=== PATIENT | female | born 1965 | race Caucasian/White ===

== ENCOUNTER 2024-06-26 03:24 | Outpatient (RCR) | payer OTHER, SELFPAY ==
[2024-06-05 09:10] LABS: Abs Immature Grans 0.04 10^3/uL (0.0-0.06); Absolute Basophil Count 0.07 10^3/uL (0.0-0.2); Absolute Eosinophil Count 0.41 10^3/uL (0.0-0.7); Absolute Lymphocyte Count 1.81 10^3/uL (1.2-3.4); Absolute Monocyte Count 0.69 10^3/uL (0.1-0.8); Absolute Neutrophil Count 7.31 10^3/uL (1.2-6.7); Basophils % 0.7 %; HCT 43.6 % (36.0-46.0); HGB 14.4 g/dL (11.2-15.7); Immature Grans % 0.4 %; Lymphocytes % 17.5 %; MCH 29.3 pg (27.0-33.0); MCV 89 fL (80-95); Monocytes % 6.7 %; Neutrophils % 70.7 %; Platelet Count 283 10^3/uL (130-400); RBC 4.91 10^6/uL (3.93-5.22); RDW 12.7 % (11.7-14.6); RDW-SD 41.4 fL; WBC 10.33 10^3/uL (4.4-10.8)
[2024-06-05 09:19] LABS: ALT 35 U/L (14-59); AST 18 U/L (15-37); Albumin 3.3 g/dL (3.4-5.0); Alkaline Phosphatase 65 U/L (46-116); Anion Gap 4.2 mmol/L (3-11); BUN 12 mg/dL (7-18); Bilirubin, Total 0.64 mg/dL (0.2-1.0); CO2 34.8 mmol/L (21.0-32.0); CREATININE 0.8 mg/dL (0.55-1.02); Calcium 9.3 mg/dL (8.5-10.1); Chloride 102 mmol/L (98-107); Estimated GFR 84.82 (mL/min/1.73m2); Glucose 190 mg/dL (74-106); Sodium 141 mmol/L (136-145); Total Protein 6.8 g/dL (6.4-8.2)
[2024-06-05] MEDS: Normal Saline Flush 10 ML SYR IVP (09:33)
[2024-06-26] MEDS: Normal Saline Flush 10 ML SYR IVP (08:40)
[2024-06-26 08:54] LABS: Abs Immature Grans 0.05 10^3/uL (0.0-0.06); Absolute Basophil Count 0.08 10^3/uL (0.0-0.2); Absolute Eosinophil Count 0.04 10^3/uL (0.0-0.7); Absolute Lymphocyte Count 1.63 10^3/uL (1.2-3.4); Absolute Monocyte Count 0.93 10^3/uL (0.1-0.8); Absolute Neutrophil Count 6.88 10^3/uL (1.2-6.7); Basophils % 0.8 %; Eosinophils % 0.4 %; HCT 39.3 % (36.0-46.0); HGB 13.2 g/dL (11.2-15.7); Immature Grans % 0.5 %; MCH 29.1 pg (27.0-33.0); MCHC 33.6 % (32.0-36.0); MCV 87 fL (80-95); MPV 10.1 fL (8.0-11.0); Monocytes % 9.7 %; Neutrophils % 71.6 %; Platelet Count 164 10^3/uL (130-400); RBC 4.54 10^6/uL (3.93-5.22); RDW 12.5 % (11.7-14.6); RDW-SD 39.4 fL; WBC 9.61 10^3/uL (4.4-10.8)
[2024-06-26 09:15] LABS: ALT 72 U/L (14-59); AST 35 U/L (15-37); Albumin 3.3 g/dL (3.4-5.0); Alkaline Phosphatase 97 U/L (46-116); Anion Gap 3.2 mmol/L (3-11); BUN 13 mg/dL (7-18); Bilirubin, Total 0.65 mg/dL (0.2-1.0); CO2 34.8 mmol/L (21.0-32.0); CREATININE 0.8 mg/dL (0.55-1.02); Calcium 9.4 mg/dL (8.5-10.1); Chloride 102 mmol/L (98-107); Estimated GFR 84.82 (mL/min/1.73m2); Glucose 214 mg/dL (74-106); Sodium 140 mmol/L (136-145); Total Protein 6.8 g/dL (6.4-8.2)
== END 2024-06-27 23:59 | disposition home or self-care (01) ==
LOC: INF 03:24
PROVIDERS: PCP Internal Medicine; Visit Provider Nurse Practitioner Family
DX: C50.512 Malignant neoplasm of lower-outer quadrant of left female breast (principal)
CPT/HCPCS: 36591; 80053; 85025

== ENCOUNTER 2024-07-17 01:09 | Outpatient (RCR) | payer OTHER, SELFPAY ==
[2024-07-17] MEDS: Normal Saline Flush 10 ML SYR IVP (10:30)
[2024-07-17 11:00] LABS: Abs Immature Grans 0.02 10^3/uL (0.0-0.06); Absolute Basophil Count 0.03 10^3/uL (0.0-0.2); Absolute Monocyte Count 0.52 10^3/uL (0.1-0.8); Absolute Neutrophil Count 6.16 10^3/uL (1.2-6.7); Basophils % 0.4 %; HCT 33.8 % (36.0-46.0); HGB 11.2 g/dL (11.2-15.7); Immature Grans % 0.2 %; Lymphocytes % 17.2 %; MCH 29.6 pg (27.0-33.0); MCHC 33.1 % (32.0-36.0); MCV 89 fL (80-95); MPV 10.7 fL (8.0-11.0); Monocytes % 6.4 %; Neutrophils % 75.8 %; Platelet Count 234 10^3/uL (130-400); RBC 3.78 10^6/uL (3.93-5.22); RDW 15.5 % (11.7-14.6); WBC 8.13 10^3/uL (4.4-10.8)
[2024-07-17 11:17] LABS: ALT 39 U/L (14-59); AST 22 U/L (15-37); Albumin 3.1 g/dL (3.4-5.0); Alkaline Phosphatase 86 U/L (46-116); BUN 12 mg/dL (7-18); Bilirubin, Total 0.56 mg/dL (0.2-1.0); Chloride 102 mmol/L (98-107); Glucose 241 mg/dL (74-106); Potassium 3.5 mmol/L (3.5-5.1); Sodium 140 mmol/L (136-145); Total Protein 6.4 g/dL (6.4-8.2)
== END 2024-07-25 23:59 | disposition home or self-care (01) ==
LOC: INF 01:09
PROVIDERS: PCP Internal Medicine; Visit Provider Nurse Practitioner Family
DX: C50.512 Malignant neoplasm of lower-outer quadrant of left female breast (principal); Z17.0 Estrogen receptor positive status [ER+]
CPT/HCPCS: 36591; 80053; 85025

== ENCOUNTER 2024-08-14 11:00 | Outpatient (RCR) | payer OTHER, SELFPAY ==
[2024-08-07] MEDS: Normal Saline Flush 10 ML SYR IVP (10:29)
[2024-08-07 10:56] LABS: Abs Immature Grans 0.03 10^3/uL (0.0-0.06); Absolute Basophil Count 0.03 10^3/uL (0.0-0.2); Absolute Lymphocyte Count 1.68 10^3/uL (1.2-3.4); Absolute Monocyte Count 0.67 10^3/uL (0.1-0.8); Absolute Neutrophil Count 5.54 10^3/uL (1.2-6.7); Basophils % 0.4 %; HCT 26.4 % (36.0-46.0); HGB 8.7 g/dL (11.2-15.7); Immature Grans % 0.4 %; Lymphocytes % 21.1 %; MCH 30.2 pg (27.0-33.0); MCV 92 fL (80-95); MPV 11.5 fL (8.0-11.0); Monocytes % 8.4 %; Neutrophils % 69.7 %; RBC 2.88 10^6/uL (3.93-5.22); RDW 16.8 % (11.7-14.6); RDW-SD 51.5 fL; WBC 7.95 10^3/uL (4.4-10.8)
[2024-08-07 11:14] LABS: ALT 39 U/L (14-59); AST 20 U/L (15-37); Alkaline Phosphatase 75 U/L (46-116); Anion Gap 10.1 mmol/L (3-11); BUN 21 mg/dL (7-18); Bilirubin, Total 0.6 mg/dL (0.2-1.0); CO2 26.9 mmol/L (21.0-32.0); Calcium 9.3 mg/dL (8.5-10.1); Chloride 103 mmol/L (98-107); Glucose 240 mg/dL (74-106); Potassium 3.9 mmol/L (3.5-5.1); Sodium 140 mmol/L (136-145)
[2024-08-07 11:19] LABS: Platelet Count 38 10^3/uL (130-400)
[2024-08-14] MEDS: Normal Saline Flush 10 ML SYR IVP (11:07)
[2024-08-14 11:16] LABS: Abs Immature Grans 0.02 10^3/uL (0.0-0.06); Absolute Basophil Count 0.02 10^3/uL (0.0-0.2); Absolute Eosinophil Count 0.11 10^3/uL (0.0-0.7); Absolute Lymphocyte Count 1.12 10^3/uL (1.2-3.4); Absolute Monocyte Count 0.49 10^3/uL (0.1-0.8); Absolute Neutrophil Count 5.03 10^3/uL (1.2-6.7); Basophils % 0.3 %; Eosinophils % 1.6 %; HGB 8.5 g/dL (11.2-15.7); Immature Grans % 0.3 %; Lymphocytes % 16.5 %; MCH 31.6 pg (27.0-33.0); MCHC 32.7 % (32.0-36.0); MCV 97 fL (80-95); MPV 10.9 fL (8.0-11.0); Monocytes % 7.2 %; Neutrophils % 74.1 %; Platelet Count 108 10^3/uL (130-400); RBC 2.69 10^6/uL (3.93-5.22); RDW-SD 70.3 fL; WBC 6.79 10^3/uL (4.4-10.8)
[2024-08-14 11:37] LABS: ALT 41 U/L (14-59); AST 26 U/L (15-37); Alkaline Phosphatase 77 U/L (46-116); Anion Gap 5.1 mmol/L (3-11); BUN 16 mg/dL (7-18); Bilirubin, Total 0.9 mg/dL (0.2-1.0); CO2 28.9 mmol/L (21.0-32.0); Calcium 8.7 mg/dL (8.5-10.1); Chloride 105 mmol/L (98-107); Glucose 271 mg/dL (74-106); Potassium 4.5 mmol/L (3.5-5.1); Sodium 139 mmol/L (136-145); Total Protein 6.1 g/dL (6.4-8.2)
[2024-08-14 11:42] LABS: Diff Comment Diff Reviewed; Hypochromasia 2+
[2024-08-14 11:43] LABS: Anisocytosis 2+; Polychromasia Present
== END 2024-08-25 23:59 | disposition home or self-care (01) ==
LOC: INF 11:00
PROVIDERS: PCP Internal Medicine; Visit Provider Nurse Practitioner Family
DX: C50.512 Malignant neoplasm of lower-outer quadrant of left female breast (principal); Z17.0 Estrogen receptor positive status [ER+]
CPT/HCPCS: 36591; 80053; 85025

== ENCOUNTER 2024-09-12 08:15 | Outpatient (RCR) | payer OTHER, SELFPAY ==
[2024-09-05 10:40] LABS: Abs Immature Grans 0.02 10^3/uL (0.0-0.06); Absolute Basophil Count 0.02 10^3/uL (0.0-0.2); Absolute Lymphocyte Count 1.05 10^3/uL (1.2-3.4); Absolute Neutrophil Count 3.65 10^3/uL (1.2-6.7); Basophils % 0.4 %; HCT 22.7 % (36.0-46.0); HGB 7.5 g/dL (11.2-15.7); Immature Grans % 0.4 %; Lymphocytes % 20.4 %; MCH 34.6 pg (27.0-33.0); MCV 105 fL (80-95); MPV 11.2 fL (8.0-11.0); Monocytes % 7.8 %; Platelet Count 101 10^3/uL (130-400); RBC 2.17 10^6/uL (3.93-5.22); RDW 22.6 % (11.7-14.6); WBC 5.14 10^3/uL (4.4-10.8)
[2024-09-05 10:53] LABS: ALT 30 U/L (14-59); AST 20 U/L (15-37); Alkaline Phosphatase 66 U/L (46-116); Anisocytosis 2+; BUN 18 mg/dL (7-18); Bilirubin, Total 0.8 mg/dL (0.2-1.0); CREATININE 1.1 mg/dL (0.55-1.02); Calcium 8.7 mg/dL (8.5-10.1); Chloride 105 mmol/L (98-107); Diff Comment RBC Morph Reviewed; Estimated GFR 57.88 (mL/min/1.73m2); Glucose 234 mg/dL (74-106); Polychromasia Present; Potassium 4.2 mmol/L (3.5-5.1); Sodium 142 mmol/L (136-145); Total Protein 5.8 g/dL (6.4-8.2)
[2024-09-05] MEDS: Normal Saline Flush 10 ML SYR IVP (10:55)
[2024-09-12 09:01] LABS: Abs Immature Grans 0.01 10^3/uL (0.0-0.06); Absolute Basophil Count 0.02 10^3/uL (0.0-0.2); Absolute Eosinophil Count 0.11 10^3/uL (0.0-0.7); Absolute Lymphocyte Count 1.13 10^3/uL (1.2-3.4); Absolute Monocyte Count 0.41 10^3/uL (0.1-0.8); Absolute Neutrophil Count 4.85 10^3/uL (1.2-6.7); Basophils % 0.3 %; Eosinophils % 1.7 %; HCT 28.6 % (36.0-46.0); HGB 9.3 g/dL (11.2-15.7); Immature Grans % 0.2 %; Lymphocytes % 17.3 %; MCH 33.8 pg (27.0-33.0); MCHC 32.5 % (32.0-36.0); MCV 104 fL (80-95); MPV 10.8 fL (8.0-11.0); Monocytes % 6.3 %; Neutrophils % 74.2 %; Platelet Count 225 10^3/uL (130-400); RBC 2.75 10^6/uL (3.93-5.22); RDW 21.7 % (11.7-14.6); RDW-SD 81.6 fL; WBC 6.53 10^3/uL (4.4-10.8)
[2024-09-12 09:17] LABS: ALT 40 U/L (14-59); AST 25 U/L (15-37); Albumin 3.2 g/dL (3.4-5.0); Alkaline Phosphatase 81 U/L (46-116); Anion Gap 9.1 mmol/L (3-11); BUN 20 mg/dL (7-18); Bilirubin, Total 0.7 mg/dL (0.2-1.0); CO2 27.9 mmol/L (21.0-32.0); CREATININE 1.2 mg/dL (0.55-1.02); Calcium 9.2 mg/dL (8.5-10.1); Chloride 102 mmol/L (98-107); Estimated GFR 52.14 (mL/min/1.73m2); Glucose 247 mg/dL (74-106); Potassium 3.9 mmol/L (3.5-5.1); Sodium 139 mmol/L (136-145); Total Protein 6.5 g/dL (6.4-8.2)
[2024-09-12] MEDS: Normal Saline Flush 10 ML SYR IVP (09:18)
== END 2024-09-24 23:59 | disposition home or self-care (01) ==
LOC: INF 08:15
PROVIDERS: PCP Internal Medicine; Visit Provider Nurse Practitioner Family
DX: C50.512 Malignant neoplasm of lower-outer quadrant of left female breast (principal); Z17.0 Estrogen receptor positive status [ER+]; Z45.2 Encounter for adjustment and management of vascular access device
CPT/HCPCS: 36591; 80053; 85025

== ENCOUNTER 2024-10-16 02:34 | Outpatient (CLI) | payer OTHER, SELFPAY ==
--- NOTE | 2024-10-16 | DI.US_ITS ---
APPROVED REPORT EXAM: Comprehensive 2D, Doppler, and color-flow Echocardiogram Patient Location: Out-Patient Financial Systems Administrator: Marleni Dias RDCS (AE) Indications: Encounter for monitoring cardiotoxic drug therapy Other Information Study Quality: Fair. Technically limited study due to body habitus, patient had difficulty moving in to position, pain.. Conclusion Normal left ventricular wall thickness and chamber size. Ejection fraction is 55%. Wall motion is n ormal Normal right ventricular size and function Both atria are normal in size There is no structural or hemodynamically significant valvular disease Minimally dilated ascending aorta 3.36 cm Wall motion Left Ventricle The left ventricle is normal size. The left ventricular systolic function is normal. The left ventric ular ejection fraction is within the normal range. There is normal left ventricular wall thickness. T here is normal LV segmental wall motion. There is no ventricular septal defect visualized. LVEF is 55 %. Right Ventricle The right ventricle is normal size. The right ventricular systolic function is normal. Atria The left atrium size is normal. The right atrium size is normal. The interatrial septum is intact wit h no evidence for an atrial septal defect. Aortic Valve The aortic valve is normal in structure. Aortic valve is trileaflet. There is no aortic valvular sten osis. No aortic regurgitation is present. Mitral Valve The mitral valve is normal in structure. No evidence of mitral valve stenosis. Trace mitral regurgita tion. Tricuspid Valve The tricuspid valve is normal in structure. There is no tricuspid valve stenosis. Trace tricuspid reg urgitation. Unable to assess PA pressure. Pulmonic Valve The pulmonary valve is normal in structure. There is no pulmonic valvular stenosis. Trace pulmonic re gurgitation. Great Vessels The aortic root is normal in size. The ascending aorta is mildly dilated. Aortic arch is normal in ca liber. IVC is normal in size and collapses >50% with inspiration. Pericardium There is no pericardial effusion. 2D Dimensions IVSD d PLAX 0.87 cm F: 0.6-1.0 Ao Root d 3.09 cm F: 2.7 - 3.3 LVPW d PLAX 0.87 cm F: 0.6 - 1.0 Ao Asc Diam d 3.36 cm F: 2.3 - 3.1 LVID d PLAX 4.86 cm F: 3.8 - 5.2 LVDs 3.50 cm F: 2.2 - 3.5 LV EF Teichholz 54.1 % FS 28.01 % LV EDV (Teich) 110.5 mL LV ESV (Teich) 50.7 mL M-Mode TAPSE 2.20 cm (M/F) >1.7 Auto EF LV EDV A4C 119.4 mL LV EDV A2C 148.7 mL LV EDV BP 133.7 mL LV ESV A4C 60.3 mL LV ESV A2C 71.7 mL LV ESV BP 65.6 mL LVEF(%) A4C 49.5 % LVEF(%) A2C 51.8 % LVEF(%) BP 50.9 % LV SV A4C 59.1 ml LV SV A2C 77.1 ml LV SV BP 68.1 ml LV CO A4C 4.0 L/min LV CO A2C 5.3 L/min LV CO BP 4.7 L/min HR A4C 68.19 BPM HR A2C 68.44 BPM LV EDV Index (BP) LV Strain Long Pk Overal Avg (s) 15.68 LA Volume LA Length A4C 6.8 cm LA Length A2C 5.5 cm LA Area A4C s 24.85 cm2 LA Area A2C s 19.93 cm2 LA Vol A4C A-L 77.40 mL LA Vol A2C A-L 61.36 mL LA Vol Biplane A-L 76.5 mL LA Vol/BSA A4C A-L LA Vol/BSA A2C A-L LA Vol/BSA BP A-L 33.3 mL/m2 LA Vol A4C MOD 71.3 mL LA Vol A2C MOD 58.9 mL LA Vol BP MOD 71.6 mL RA Volume RA Area A4C 17.9 cm2 RA ESV A4C (A-L) 44.4mL RA Vol/BSA A4C A-L RA Length A4C 6.1 cm RA ESV A4C (MOD) 42.3mL LV Diastology MV E' medial 0.071 (>0.07 m/s) MV E Vmax 0.70 (0.4-1.3 m/s) MV E/E' MED 9.84 (<14) MV A Vmax 0.85 (0.4-1.3 m/s) MV E' lateral 0.071 (>0.1 m/s) E/A Ratio 0.8 MV E/E' LAT 9.84 (<14) MV E' Average 0.071 m/s MV E/E'(average) 9.84 Aortic Valve AoV Vmax 1.65 m/s LVOT Vmax 1.16 m/s AoV Peak Grad 10.9 mmHg LVOT Peak Grad 5.4 mmHg AoV Area (Vmax) 2.15 cm2 LVOT VTI 0.243 m AoV VTI 0.340 m LVOT Mean Grad 3.2 mmHg AoV Mean Travis. 1.10 m/s LVOT SV 74.51 mL AoV Mean Grad 5.6 mmHg LVOT Diam s 1.95 cm AoV Area (VTI) 2.19 cm2 AV Regurg Peak Gr. 10.92 mmHg Velocity Ratio 0.70 Mitral Valve MV DT 286 (160-240 msec) MV Vmax TIPS 0.82 m/s MV Mean Grad 1.1 (<2mmHg) MV VTI 0.237 m Pulmonary Valve PV Vmax 0.98 (0.5-1.5 m/s) RVOT Vmax 0.69 m/s PV Peak Grad 3.8 mmHg RVOT Peak Gr. 1.9 mmHg PV Mean Travis 0.57 m/s RVOT VTI 0.164 m PV Mean Grad 1.6 mmHg RVOT Mean Gr. 1.1 mmHg Tricuspid Valve TV S' 0.17 m/s
== END 2024-10-16 02:54 ==
LOC: DI 02:34
PROVIDERS: PCP Internal Medicine; Visit Provider Internal Medicine Cardiovascular Disease
DX: Z51.81 Encounter for therapeutic drug level monitoring (principal); Z79.899 Other long term (current) drug therapy
CPT/HCPCS: 93306

== ENCOUNTER 2024-10-16 02:52 | Outpatient (RCR) | payer OTHER, SELFPAY ==
[2024-10-03] MEDS: Normal Saline Flush 10 ML SYR IVP (08:52)
[2024-10-03 09:00] LABS: Abs Immature Grans 0.03 10^3/uL (0.0-0.06); Absolute Basophil Count 0.02 10^3/uL (0.0-0.2); Absolute Lymphocyte Count 1.17 10^3/uL (1.2-3.4); Absolute Monocyte Count 0.62 10^3/uL (0.1-0.8); Absolute Neutrophil Count 5.45 10^3/uL (1.2-6.7); Basophils % 0.3 %; HCT 24.6 % (36.0-46.0); Immature Grans % 0.4 %; MCH 34.3 pg (27.0-33.0); MCHC 32.5 % (32.0-36.0); MCV 106 fL (80-95); MPV 12.1 fL (8.0-11.0); Monocytes % 8.5 %; Neutrophils % 74.8 %; RBC 2.33 10^6/uL (3.93-5.22); RDW 18.3 % (11.7-14.6); RDW-SD 70.5 fL; WBC 7.29 10^3/uL (4.4-10.8)
[2024-10-03 09:13] LABS: Diff Comment PLT Morph Reviewed; Platelet Count 52 10^3/uL (130-400); RBC Morphology Normal
[2024-10-03 09:14] LABS: ALT 28 U/L (14-59); AST 19 U/L (15-37); Alkaline Phosphatase 76 U/L (46-116); Anion Gap 9.6 mmol/L (3-11); BUN 17 mg/dL (7-18); Bilirubin, Total 0.6 mg/dL (0.2-1.0); CO2 27.4 mmol/L (21.0-32.0); Calcium 8.8 mg/dL (8.5-10.1); Chloride 104 mmol/L (98-107); Glucose 208 mg/dL (74-106); Sodium 141 mmol/L (136-145); Total Protein 5.9 g/dL (6.4-8.2)
[2024-10-10 08:54] LABS: Abs Immature Grans 0.03 10^3/uL (0.0-0.06); Absolute Basophil Count 0.02 10^3/uL (0.0-0.2); Absolute Lymphocyte Count 1.31 10^3/uL (1.2-3.4); Absolute Monocyte Count 0.51 10^3/uL (0.1-0.8); Basophils % 0.3 %; Eosinophils % 1.6 %; HCT 26.3 % (36.0-46.0); HGB 8.5 g/dL (11.2-15.7); Immature Grans % 0.5 %; Lymphocytes % 21.2 %; MCH 34.3 pg (27.0-33.0); MCHC 32.3 % (32.0-36.0); MCV 106 fL (80-95); MPV 10.6 fL (8.0-11.0); Monocytes % 8.3 %; Neutrophils % 68.1 %; RBC 2.48 10^6/uL (3.93-5.22); RDW 17.7 % (11.7-14.6); RDW-SD 70.7 fL; WBC 6.17 10^3/uL (4.4-10.8)
[2024-10-10] MEDS: Normal Saline Flush 10 ML SYR IVP (08:57)
[2024-10-10 09:05] LABS: ALT 31 U/L (14-59); AST 20 U/L (15-37); Albumin 3.2 g/dL (3.4-5.0); Alkaline Phosphatase 76 U/L (46-116); Anion Gap 4.5 mmol/L (3-11); BUN 16 mg/dL (7-18); Bilirubin, Total 0.7 mg/dL (0.2-1.0); CO2 30.5 mmol/L (21.0-32.0); Calcium 9.4 mg/dL (8.5-10.1); Chloride 103 mmol/L (98-107); Glucose 196 mg/dL (74-106); Potassium 4.1 mmol/L (3.5-5.1); Sodium 138 mmol/L (136-145); Total Protein 6.1 g/dL (6.4-8.2)
[2024-10-10 09:19] LABS: Platelet Count 97 10^3/uL (130-400)
[2024-10-10 09:20] LABS: Diff Comment Diff Reviewed; Hypochromasia 2+; Macrocytosis 2+; Polychromasia Present
== END 2024-10-25 23:59 | disposition home or self-care (01) ==
LOC: INF 02:52
PROVIDERS: PCP Internal Medicine; Visit Provider Nurse Practitioner Family
DX: C50.512 Malignant neoplasm of lower-outer quadrant of left female breast (principal); Z17.0 Estrogen receptor positive status [ER+]; Z45.2 Encounter for adjustment and management of vascular access device
CPT/HCPCS: 36591; 80053; 85025

== ENCOUNTER 2024-12-19 00:32 | Outpatient (RCR) | payer OTHER, SELFPAY ==
[2024-11-26 13:27] LABS: Abs Immature Grans 0.01 10^3/uL (0.0-0.06); HCT 29.6 % (36.0-46.0); HGB 9.8 g/dL (11.2-15.7); Immature Grans % 0.2 %; MCH 34.6 pg (27.0-33.0); MCHC 33.1 % (32.0-36.0); MCV 105 fL (80-95); MPV 9.7 fL (8.0-11.0); Platelet Count 177 10^3/uL (130-400); RBC 2.83 10^6/uL (3.93-5.22); RDW 14.2 % (11.7-14.6); RDW-SD 53.8 fL; WBC 5.87 10^3/uL (4.4-10.8)
[2024-11-26 13:44] LABS: ALT 29 U/L (14-59); AST 18 U/L (15-37); Albumin 3.5 g/dL (3.4-5.0); Alkaline Phosphatase 71 U/L (46-116); Anion Gap 9.0 mmol/L (3-11); BUN 17 mg/dL (7-18); Bilirubin, Total 0.7 mg/dL (0.2-1.0); CO2 29.0 mmol/L (21.0-32.0); Calcium 9.1 mg/dL (8.5-10.1); Chloride 103 mmol/L (98-107); Estimated GFR 73.64 (mL/min/1.73m2); Glucose 160 mg/dL (74-106); Potassium 4.0 mmol/L (3.5-5.1); Sodium 141 mmol/L (136-145); Total Protein 6.6 g/dL (6.4-8.2)
[2024-11-26] MEDS: Normal Saline Flush 10 ML SYR IVP (14:03)
[2024-12-19 12:19] LABS: Abs Immature Grans 0.01 10^3/uL (0.0-0.06); HCT 31.7 % (36.0-46.0); HGB 10.6 g/dL (11.2-15.7); Immature Grans % 0.2 %; MCH 32.8 pg (27.0-33.0); MCHC 33.4 % (32.0-36.0); MCV 98 fL (80-95); MPV 9.9 fL (8.0-11.0); Platelet Count 164 10^3/uL (130-400); RBC 3.23 10^6/uL (3.93-5.22); RDW 12.5 % (11.7-14.6); RDW-SD 44.9 fL; WBC 6.41 10^3/uL (4.4-10.8)
[2024-12-19] MEDS: Normal Saline Flush 10 ML SYR IVP (12:26)
[2024-12-19 12:46] LABS: ALT 30 U/L (14-59); AST 18 U/L (15-37); Albumin 3.4 g/dL (3.4-5.0); Alkaline Phosphatase 78 U/L (46-116); Anion Gap 3.6 mmol/L (3-11); BUN 17 mg/dL (7-18); Bilirubin, Total 0.7 mg/dL (0.2-1.0); CO2 32.4 mmol/L (21.0-32.0); Calcium 9.2 mg/dL (8.5-10.1); Chloride 102 mmol/L (98-107); Estimated GFR 73.19 (mL/min/1.73m2); Glucose 157 mg/dL (74-106); Potassium 4.1 mmol/L (3.5-5.1); Sodium 138 mmol/L (136-145); Total Protein 6.8 g/dL (6.4-8.2)
== END 2024-12-25 23:59 | disposition home or self-care (01) ==
LOC: INF 00:32
PROVIDERS: PCP Internal Medicine; Visit Provider Nurse Practitioner Family
DX: Z45.2 Encounter for adjustment and management of vascular access device (principal); C50.512 Malignant neoplasm of lower-outer quadrant of left female breast; Z17.0 Estrogen receptor positive status [ER+]; D69.6 Thrombocytopenia, unspecified
CPT/HCPCS: 36591; 80053; 85025

== ENCOUNTER 2025-01-09 00:33 | Outpatient (RCR) | payer OTHER, SELFPAY ==
[2025-01-09] MEDS: Normal Saline Flush 10 ML SYR IVP (13:46)
[2025-01-09 14:01] LABS: Abs Immature Grans 0.01 10^3/uL (0.0-0.06); HCT 33.1 % (36.0-46.0); HGB 11.0 g/dL (11.2-15.7); Immature Grans % 0.1 %; MCH 31.9 pg (27.0-33.0); MCHC 33.2 % (32.0-36.0); MCV 96 fL (80-95); MPV 10.0 fL (8.0-11.0); Platelet Count 189 10^3/uL (130-400); RBC 3.45 10^6/uL (3.93-5.22); RDW 12.3 % (11.7-14.6); RDW-SD 42.4 fL; WBC 7.28 10^3/uL (4.4-10.8)
[2025-01-09 14:16] LABS: ALT 28 U/L (14-59); AST 18 U/L (15-37); Albumin 3.5 g/dL (3.4-5.0); Alkaline Phosphatase 70 U/L (46-116); Anion Gap 9.4 mmol/L (3-11); BUN 18 mg/dL (7-18); Bilirubin, Total 0.7 mg/dL (0.2-1.0); CO2 29.6 mmol/L (21.0-32.0); Calcium 9.3 mg/dL (8.5-10.1); Chloride 101 mmol/L (98-107); Estimated GFR 73.19 (mL/min/1.73m2); Glucose 142 mg/dL (74-106); Potassium 3.9 mmol/L (3.5-5.1); Sodium 140 mmol/L (136-145); Total Protein 6.9 g/dL (6.4-8.2)
== END 2025-01-25 23:59 | disposition home or self-care (01) ==
LOC: INF 00:33
PROVIDERS: PCP Internal Medicine; Visit Provider Nurse Practitioner Family
DX: Z45.2 Encounter for adjustment and management of vascular access device (principal); C50.512 Malignant neoplasm of lower-outer quadrant of left female breast; Z17.0 Estrogen receptor positive status [ER+]; D69.6 Thrombocytopenia, unspecified
CPT/HCPCS: 36591; 80053; 85025

== ENCOUNTER 2025-02-20 00:18 | Outpatient (RCR) | payer OTHER, SELFPAY ==
[2025-01-30 13:33] LABS: Abs Immature Grans 0.02 10^3/uL (0.0-0.06); HCT 34.3 % (36.0-46.0); HGB 11.3 g/dL (11.2-15.7); Immature Grans % 0.2 %; MCH 31.0 pg (27.0-33.0); MCHC 32.9 % (32.0-36.0); MCV 94 fL (80-95); MPV 9.8 fL (8.0-11.0); Platelet Count 200 10^3/uL (130-400); RBC 3.65 10^6/uL (3.93-5.22); RDW 12.4 % (11.7-14.6); RDW-SD 42.9 fL; WBC 8.36 10^3/uL (4.4-10.8)
[2025-01-30 13:56] LABS: ALT 31 U/L (14-59); AST 22 U/L (15-37); Albumin 3.4 g/dL (3.4-5.0); Alkaline Phosphatase 70 U/L (46-116); Anion Gap 6.5 mmol/L (3-11); BUN 20 mg/dL (7-18); Bilirubin, Total 0.5 mg/dL (0.2-1.0); CO2 29.5 mmol/L (21.0-32.0); Calcium 9.5 mg/dL (8.5-10.1); Chloride 103 mmol/L (98-107); Glucose 167 mg/dL (74-106); Potassium 3.9 mmol/L (3.5-5.1); Sodium 139 mmol/L (136-145); Total Protein 6.9 g/dL (6.4-8.2)
[2025-01-30] MEDS: Normal Saline Flush 10 ML SYR IVP (14:53)
[2025-02-20] MEDS: Normal Saline Flush 10 ML SYR IVP (09:30)
[2025-02-20 09:34] LABS: Abs Immature Grans 0.02 10^3/uL (0.0-0.06); HCT 36.2 % (36.0-46.0); HGB 12.0 g/dL (11.2-15.7); Immature Grans % 0.3 %; MCH 31.1 pg (27.0-33.0); MCHC 33.1 % (32.0-36.0); MCV 94 fL (80-95); MPV 9.7 fL (8.0-11.0); Platelet Count 203 10^3/uL (130-400); RBC 3.86 10^6/uL (3.93-5.22); RDW 12.8 % (11.7-14.6); RDW-SD 44.0 fL; WBC 7.44 10^3/uL (4.4-10.8)
[2025-02-20 09:47] LABS: ALT 29 U/L (14-59); AST 16 U/L (15-37); Albumin 3.4 g/dL (3.4-5.0); Alkaline Phosphatase 69 U/L (46-116); Anion Gap 9.4 mmol/L (3-11); BUN 18 mg/dL (7-18); Bilirubin, Total 0.6 mg/dL (0.2-1.0); CO2 29.6 mmol/L (21.0-32.0); Calcium 9.2 mg/dL (8.5-10.1); Chloride 101 mmol/L (98-107); Glucose 211 mg/dL (74-106); Potassium 4.0 mmol/L (3.5-5.1); Sodium 140 mmol/L (136-145); Total Protein 6.9 g/dL (6.4-8.2)
== END 2025-02-24 23:59 | disposition home or self-care (01) ==
LOC: INF 00:18
PROVIDERS: PCP Internal Medicine; Visit Provider Nurse Practitioner Family
DX: C50.512 Malignant neoplasm of lower-outer quadrant of left female breast (principal); Z17.0 Estrogen receptor positive status [ER+]; Z45.2 Encounter for adjustment and management of vascular access device
CPT/HCPCS: 36591; 80053; 85025

== ENCOUNTER 2025-03-13 00:09 | Outpatient (RCR) | payer OTHER, SELFPAY ==
[2025-03-13 09:26] LABS: Abs Immature Grans 0.02 10^3/uL (0.0-0.06); HCT 35.3 % (36.0-46.0); HGB 11.7 g/dL (11.2-15.7); Immature Grans % 0.3 %; MCH 30.5 pg (27.0-33.0); MCHC 33.1 % (32.0-36.0); MCV 92 fL (80-95); MPV 9.6 fL (8.0-11.0); Platelet Count 199 10^3/uL (130-400); RBC 3.83 10^6/uL (3.93-5.22); RDW 13.1 % (11.7-14.6); RDW-SD 43.2 fL; WBC 7.39 10^3/uL (4.4-10.8)
[2025-03-13] MEDS: Normal Saline Flush 10 ML SYR IVP (09:50)
[2025-03-13 10:07] LABS: ALT 34 U/L (14-59); AST 15 U/L (15-37); Albumin 3.3 g/dL (3.4-5.0); Alkaline Phosphatase 72 U/L (46-116); Anion Gap 9.4 mmol/L (3-11); BUN 19 mg/dL (7-18); Bilirubin, Total 0.7 mg/dL (0.2-1.0); CO2 29.6 mmol/L (21.0-32.0); Calcium 9.1 mg/dL (8.5-10.1); Chloride 97 mmol/L (98-107); Glucose 219 mg/dL (74-106); Magnesium 1.2 mg/dL (1.8-2.4); Potassium 3.9 mmol/L (3.5-5.1); Sodium 136 mmol/L (136-145); Total Protein 6.8 g/dL (6.4-8.2); Vitamin D 25 Total 27 ng/mL (30-100)
== END 2025-03-27 23:59 | disposition home or self-care (01) ==
LOC: INF 00:09
PROVIDERS: PCP Internal Medicine; Visit Provider Nurse Practitioner Family
DX: Z45.2 Encounter for adjustment and management of vascular access device (principal); C50.512 Malignant neoplasm of lower-outer quadrant of left female breast; Z17.0 Estrogen receptor positive status [ER+]; Z79.891 Long term (current) use of opiate analgesic
CPT/HCPCS: 36591; 80053; 82306; 83735; 85025

== ENCOUNTER 2025-04-03 00:52 | Outpatient (RCR) | payer OTHER, SELFPAY ==
[2025-04-03] MEDS: Normal Saline Flush 10 ML SYR IVP (09:21)
[2025-04-03 09:30] LABS: Abs Immature Grans 0.03 10^3/uL (0.0-0.06); HCT 34.8 % (36.0-46.0); HGB 11.5 g/dL (11.2-15.7); Immature Grans % 0.4 %; MCH 30.3 pg (27.0-33.0); MCHC 33.0 % (32.0-36.0); MCV 92 fL (80-95); MPV 9.3 fL (8.0-11.0); Platelet Count 188 10^3/uL (130-400); RBC 3.80 10^6/uL (3.93-5.22); RDW 13.1 % (11.7-14.6); RDW-SD 43.8 fL; WBC 8.05 10^3/uL (4.4-10.8)
[2025-04-03 10:07] LABS: ALT 34 U/L (14-59); AST 17 U/L (15-37); Albumin 3.2 g/dL (3.4-5.0); Alkaline Phosphatase 75 U/L (46-116); Anion Gap 9.8 mmol/L (3-11); BUN 19 mg/dL (7-18); Bilirubin, Total 0.6 mg/dL (0.2-1.0); CO2 30.2 mmol/L (21.0-32.0); Calcium 8.9 mg/dL (8.5-10.1); Chloride 98 mmol/L (98-107); Estimated GFR 64.49 (mL/min/1.73m2); Glucose 252 mg/dL (74-106); Magnesium 1.2 mg/dL (1.8-2.4); Potassium 4.0 mmol/L (3.5-5.1); Sodium 138 mmol/L (136-145); Total Protein 6.7 g/dL (6.4-8.2); Vitamin D 25 Total 27 ng/mL (30-100)
== END 2025-04-26 23:59 | disposition home or self-care (01) ==
LOC: INF 00:52
PROVIDERS: PCP Internal Medicine; Visit Provider Nurse Practitioner Family
DX: Z45.2 Encounter for adjustment and management of vascular access device (principal); C50.512 Malignant neoplasm of lower-outer quadrant of left female breast; Z17.0 Estrogen receptor positive status [ER+]; Z79.811 Long term (current) use of aromatase inhibitors
CPT/HCPCS: 36591; 80053; 82306; 83735; 85025

== ENCOUNTER 2025-05-22 10:00 | Outpatient (RCR) | payer OTHER, SELFPAY ==
[2025-05-01] MEDS: Normal Saline Flush 10 ML SYR IVP (09:23)
[2025-05-01 09:30] LABS: Abs Immature Grans 0.03 10^3/uL (0.0-0.06); HCT 36.7 % (36.0-46.0); HGB 12.1 g/dL (11.2-15.7); Immature Grans % 0.4 %; MCH 30.0 pg (27.0-33.0); MCHC 33.0 % (32.0-36.0); MCV 91 fL (80-95); MPV 9.5 fL (8.0-11.0); Platelet Count 219 10^3/uL (130-400); RBC 4.04 10^6/uL (3.93-5.22); RDW 13.0 % (11.7-14.6); RDW-SD 42.9 fL; WBC 8.40 10^3/uL (4.4-10.8)
[2025-05-01 09:45] LABS: Magnesium 1.1 mg/dL (1.6-2.6)
[2025-05-01 09:46] LABS: ALT 25 U/L (10-49); AST 20 U/L (<34); Albumin 4.3 g/dL (3.2-5.0); Alkaline Phosphatase 70 U/L (46-116); Anion Gap 8.7 mmol/L (3-11); BUN 21 mg/dL (9-23); Bilirubin, Total 0.80 mg/dL (0.2-1.2); CO2 30.3 mmol/L (20.0-31.0); Calcium 9.4 mg/dL (8.3-10.6); Chloride 100 mmol/L (98-107); Glucose 228 mg/dL (74-106); Potassium 3.7 mmol/L (3.5-5.1); Sodium 139 mmol/L (136-145); Total Protein 6.9 g/dL (5.7-8.2)
[2025-05-01 09:49] LABS: Vitamin D 25 Total 44 ng/mL (30-100)
[2025-05-22] MEDS: Normal Saline Flush 10 ML SYR IVP (09:30)
[2025-05-22 10:39] LABS: Abs Immature Grans 0.02 10^3/uL (0.0-0.06); HCT 36.7 % (36.0-46.0); HGB 12.1 g/dL (11.2-15.7); Immature Grans % 0.3 %; MCH 29.6 pg (27.0-33.0); MCHC 33.0 % (32.0-36.0); MCV 90 fL (80-95); MPV 9.6 fL (8.0-11.0); Platelet Count 212 10^3/uL (130-400); RBC 4.09 10^6/uL (3.93-5.22); RDW 13.0 % (11.7-14.6); RDW-SD 42.4 fL; WBC 6.74 10^3/uL (4.4-10.8)
[2025-05-22 10:54] LABS: Magnesium 1.1 mg/dL (1.6-2.6)
[2025-05-22 10:56] LABS: ALT 26 U/L (10-49); AST 21 U/L (<34); Albumin 4.2 g/dL (3.2-5.0); Alkaline Phosphatase 71 U/L (46-116); Anion Gap 7.1 mmol/L (3-11); BUN 21 mg/dL (9-23); Bilirubin, Total 0.5 mg/dL (0.2-1.2); CO2 32.9 mmol/L (20.0-31.0); Calcium 9.3 mg/dL (8.3-10.6); Chloride 100 mmol/L (98-107); Glucose 193 mg/dL (74-106); Potassium 3.3 mmol/L (3.5-5.1); Sodium 140 mmol/L (136-145); Total Protein 6.8 g/dL (5.7-8.2)
== END 2025-05-27 23:59 | disposition home or self-care (01) ==
LOC: INF 10:00
PROVIDERS: PCP Internal Medicine; Visit Provider Nurse Practitioner Family
DX: C50.512 Malignant neoplasm of lower-outer quadrant of left female breast (principal); Z17.0 Estrogen receptor positive status [ER+]; Z79.899 Other long term (current) drug therapy
CPT/HCPCS: 36591; 80053; 82306; 83735; 85025